=== PATIENT | female | born 1985 | race Caucasian/White ===

== ENCOUNTER 2017-04-15 10:32 | Emergency (ER) | payer MEDICAID ==
[2017-04-15 10:50] VITALS: RESP 16; TEMP 97.5; O2SAT 98
--- NOTE | 2017-04-15 12:17 | EDPHY ---
H & P Stated Complaint: fall, landed on elbow, on saturday - Personal History LMP (Females 10-55): 1-7 Days Ago Current Tetanus/Diphtheria Vaccine: No Current Tetanus Diphtheria and Acellular Pertussis (TDAP): No - Medical/Surgical History Hx Asthma: No Hx Chronic Respiratory Disease: No Hx Diabetes: No Hx Cardiac Disease: No Hx Renal Disease: No Hx Cirrhosis: No Hx Alcoholism: No Hx HIV/AIDS: No Hx Splenectomy or Spleen Trauma: No Other PMH: PMH:none. PSH:hernia, dental, tonsels, - Social History Smoking Status: Current every day smoker HPI/ROS: Chief complaint: Left elbow injury History of present illness: This is a 31-year-old male who presents to the emergency department for left elbow injury. Patient reports 2 days ago she slipped and fell landing onto her left elbow. Since then she has had pain and swelling. It is slowly improving. She has noted a small scratch. She denies other associated signs or symptoms including no report of abnormal coolness or paresthesias in the left arm. No fevers. No report of trauma to other parts of the body. Her tetanus is up-to-date. (Audie Swan) - Physical Exam Exam: General: Alert, nontoxic Skin: Superficial abrasion over the olecranon process left arm. Mild surrounding erythema without edema. Musculoskeletal: Mild tenderness over the olecranon process. The rest of the elbow is nontender. She is moving it with minimal difficulty. The rest left upper extremities unremarkable. Vascular: Radial pulses 2+. Neurologic: Sensation intact throughout the left arm. (Audie Swan) Constitutional: Initial Vital Signs Temperature (C) 36.4 C 04/15/17 10:47 Heart Rate 75 04/15/17 10:47 Respiratory Rate 16 04/15/17 10:47 Blood Pressure 134/82 H 04/15/17 10:47 O2 Sat (%) 98 04/15/17 10:47 O2 Delivery Mode Room Air Allergies/Adverse Reactions: No Known Allergies Allergy (Unverified 03/21/14 22:24) Home Medications: Medication Instructions Recorded Vit27&Calcium/Iron/FA 03/21/14 [] Acetaminophen [Tylenol 325mg (*)] 325 - 650 mg PO Q3 PRN #0 tab 03/23/14 Docusate Sodium [Colace 100 MG (*)] 100 mg PO BID PRN #0 cap 03/23/14 Ibuprofen [Motrin (*)] 600 mg PO Q6 PRN #0 tab 03/23/14 Cephalexin [Keflex] 500 mg PO QID 7 Days 04/15/17 Medical Decision Making - Diagnostics Imaging: I viewed and interpreted images myself Procedures: Patient placed in a sling for comfort. She remains neurovascularly intact. ( Audie Swan) ED Course/Re-evaluation: Patient is seen under the supervision of my secondary supervising physician Dr. Ashley Diaz. Patient presents to the emergency department for a left elbow injury. The left upper extremity is neurovascularly intact. Mild tenderness and erythema to the olecranon region. Certainly I am concerned for an infection. I have discussed symptomatic care at home with her including use of ibuprofen and will place her on antibiotics for potential infectious pathology. She is asked to follow up with Orthopedics for recheck. Strict return precautions are given. Patient voiced understanding and agreement with plan. ( Audie Swan) Differential Diagnosis: Included but not limited to contusion, sprain or strain, bony fracture, bursitis (Audie Swan) Other Provider: This patient was primarily evaluated and managed by the physician medical practice assistant. I reviewed the chart and agree with the planned management. I am the secondary supervising physician. (Ashley Diaz) Departure - Departure Disposition: Home, Routine, Self-Care Clinical Impression: Bursitis Condition: Good Instructions: Elbow Bursitis (ED) Additional Instructions: Follow-up with orthopedics for recheck Use ibuprofen 600 mg 3 times a day for the next 2-3 days for pain and swelling Take antibiotics as prescribed until finished even if feeling better If symptoms worsen or new symptoms develop return to the emergency room for recheck Referrals: NONE *PRIMARY CARE P,. [Primary Care Provider] - As per Instructions Matt Stoddard MD [Medical Doctor] - As per Instructions Prescriptions: Cephalexin [Keflex] 500 mg PO QID 7 Days
[2017-04-15 12:36] VITALS: BP 124/86; PULSE 62
== END 2017-04-15 12:36 | disposition home or self-care (01) ==
DX: M70.32 Other bursitis of elbow, left elbow (principal); F17.200 Nicotine dependence, unspecified, uncomplicated; W01.0XXA Fall on same level from slipping, tripping and stumbling without subsequent striking against object, initial encounter
CPT/HCPCS: A4565

== ENCOUNTER → 2018-01-13 | Outpatient (CLI) | payer MEDICAID | LOC: BRMIMAGING 14:47 | PROVIDERS: ATTEND Family Medicine | DX: Z13.820 Encounter for screening for osteoporosis (principal); M85.89 Other specified disorders of bone density and structure, multiple sites ==